=== PATIENT | female | born 1960 | race Caucasian/White ===

== ENCOUNTER 2021-12-21 07:55 | Outpatient (CLI) | payer BC | END 2021-12-21 07:56 | disposition home or self-care (01) | LOC: CSHCT 07:55 | PROVIDERS: ATTEND Physician Assistant | DX: R05.2 Subacute cough (principal) | CPT/HCPCS: 71250 ==

== ENCOUNTER 2022-03-16 05:53 | Day surgery (SDC) | payer BC ==
[2022-03-15 11:05] VITALS: BMI 32.9
[2022-03-16] MEDS ORDERED: PROPOFOL 20 ML ONE ×2 (06:50→07:48)
[2022-03-16] MEDS ORDERED: Lidocaine 1% PF 5 ML VIAL ONE (06:50)
[2022-03-16] MEDS ORDERED: PROPOFOL 40 ML ONE (06:50)
== END 2022-03-16 08:25 | disposition home or self-care (01) ==
LOC: CSHSDC 05:53
PROVIDERS: ATTEND Surgery
PROC: 0DDE8ZX Extraction of Large Intestine, Via Natural or Artificial Opening Endoscopic, Diagnostic (ICD-10-PCS; principal; 2022-03-16)
DX: Z12.11 Encounter for screening for malignant neoplasm of colon (principal); K51.40 Inflammatory polyps of colon without complications; K57.30 Diverticulosis of large intestine without perforation or abscess without bleeding; K21.9 Gastro-esophageal reflux disease without esophagitis; I10 Essential (primary) hypertension; E78.00 Pure hypercholesterolemia, unspecified; F41.9 Anxiety disorder, unspecified; M19.90 Unspecified osteoarthritis, unspecified site; Z87.891 Personal history of nicotine dependence; Z88.5 Allergy status to narcotic agent; Z88.2 Allergy status to sulfonamides; Z79.899 Other long term (current) drug therapy
CPT/HCPCS: 88305; J2704

== ENCOUNTER 2022-04-08 21:00 | Emergency (ER) | payer BC ==
[2022-04-08] MEDS ORDERED: Metoclopramide HCl 10 MG/2 ML VIAL ONE (21:25)
[2022-04-08] MEDS ORDERED: diphenhydrAMINE 50 MG/ML VIAL ONE (21:26)
[2022-04-08 21:38] LABS: Hemoglobin 13.3 g/dL (12.0-15.5); Mean Corpuscular HGB CONC 33.3 g/dL (32.0-36.0); Mean Corpuscular Hemoglobin 28.5 pg (27.0-33.0); Mean Corpuscular Volume 85.6 fl (81.6-98.3); Mean Platelet Volume 10.5 fl (7.4-10.4); Platelet Count 439 10x3/uL (150-450); RBC Distribution Width 14.4 % (11.5-14.5); Red Blood Cell (RBC) Count 4.66 10x6/uL (3.90-5.03); White Blood Cell (WBC) Count 22.6 10x3/uL (3.5-10.5)
[2022-04-08 21:39] LABS: MDiff Complete? YES
[2022-04-08 21:59] LABS: ALT (SGPT) 25 U/L (8-55); AST (SGOT) 24 U/L (5-34); Albumin 4.7 g/dL (3.5-5.0); Alkaline Phosphatase 136 U/L (40-110); Anion Gap 18 mmol/L (10-20); BUN (Urea Nitrogen) 17 mg/dL (9.8-20.1); Bilirubin, Total 0.6 mg/dL (0.2-1.2); Calc. Creatinine Clearance 0 mL/min (70-130); Calcium 9.9 mg/dL (7.8-10.44); Carbon Dioxide 20 mmol/L (22-29); Chloride 106 mmol/L (98-107); Estimated GFR 72; Globulin 3.1 g/dL (2.4-3.5); Glucose 136 mg/dL (70-105); Lipase 18 U/L (8-78); Magnesium 1.8 mg/dL (1.6-2.6); Potassium 3.5 mmol/L (3.5-5.1); Protein, Total 7.8 g/dL (6.0-8.3); Sodium 140 mmol/L (136-145)
[2022-04-08 22:14] LABS: Eosinophils 1 % (0-10); Lymphocytes 15 % (21-51); Monocytes 5 % (0-10); Neutrophil 79 % (42-75)
[2022-04-08 22:15] LABS: Platelet Morphology Comment Appears Adequate
[2022-04-08] MEDS ORDERED: Ketorolac Tromethamine 30 MG/ML VIAL ONE (22:15)
== END 2022-04-08 23:53 | disposition home or self-care (01) ==
LOC: CSHERS 21:00
DX: R11.2 Nausea with vomiting, unspecified (principal); T50.905A Adverse effect of unspecified drugs, medicaments and biological substances, initial encounter; E78.00 Pure hypercholesterolemia, unspecified; I10 Essential (primary) hypertension; F17.210 Nicotine dependence, cigarettes, uncomplicated; Z79.899 Other long term (current) drug therapy
CPT/HCPCS: 36416; 80053; 83690; 83735; 85025; 96361; 96374; 96375; J1200; J1885; J2765